=== PATIENT | female | born 1970 | race Caucasian/White ===

== ENCOUNTER 2016-10-27 13:33 | Emergency (ER) | payer OTHER ==
[2016-10-27 13:39] VITALS: BMI 24.1
[2016-10-27] MEDS ORDERED: SODIUM CHLORIDE 0.9% 1000 ML INFUS.BAG IV ONE (14:15)
[2016-10-27] MEDS ORDERED: METOCLOPRAMIDE HCL INJECTION 10 MG/2 ML VIAL IVPUSH ONE (14:16)
[2016-10-27] MEDS ORDERED: ACETAMINOPHEN 1000 MG/100 ML VIAL (NON FORMULARY) IVPB ONE (14:17)
[2016-10-27] MEDS ORDERED: METOCLOPRAMIDE HCL INJECTION 10 MG/2 ML VIAL ONE (14:39)
[2016-10-27] MEDS ORDERED: ACETAMINOPHEN INJECTION 100 ML IVPB ONE (14:39)
--- NOTE | 2016-10-27 14:50 | PDOC ---
History of Present Illness - General Chief Complaint: Headache Stated Complaint: NAUSEA/VOMITING Time Seen by Provider: 10/27/16 13:51 History Source: Patient Exam Limitations: No Limitations - History of Present Illness Initial Comments: 10/27/16 14:39 The patient is a 46F with a PMH of migraines and HTN who presents to the ED with complaints of a headache. The patient states that she had headache that started on Friday suddenly, but has gradually worsened since Friday. Yesterday and today she has vomited 12 times. The headache is L sided, stabbing, and radiates to the back of her head. She does admit to being stressed at work. She denies fever, neck stiffness, onset with exertion, sudden onset, and maximal pain at onset. LMP: on it now Soc: does not smoke, drink, use drugs Past History - Past Medical History Allergies/Adverse Reactions: Allergies Allergy/AdvReac Type Severity Reaction Status Date / Time No Known Drug Allergies Allergy Verified 10/27/16 13:35 Home Medications: Ambulatory Orders Topiramate [Topamax] 50 mg PO BID 12/13/14 Naproxen [Naprosyn -] 500 mg PO PRN PRN 05/26/15 Oxycodone HCl/Acetaminophen [Percocet 5-325 mg Tablet] 1 - 2 tab PO Q6H PRN #20 tab MDD 8 05/30/15 Anemia: Yes Asthma: No Cancer: No Cardiac Disorders: (?UNDETECTED [place]) CVA: No COPD: No CHF: No Dementia: No Diabetes: No GI Disorders: Yes Disorders: No HTN: Yes (border line) Hypercholesterolemia: No Liver Disease: No Seizures: No Thyroid Disease: No Other medical history: migraines - Surgical History Abdominal Surgery: No Appendectomy: No Cardiac Surgery: No Cholecystectomy: Yes Lung Surgery: No Neurologic Surgery: No - Psycho/Social/Smoking Cessation Hx Anxiety: No Suicidal Ideation: No Smoking Status: No Smoking History: Never smoked Have you smoked in the past 12 months: No Number of Cigarettes Smoked Daily: 0 Information on smoking cessation initiated: No Hx Alcohol Use: No Drug/Substance Use Hx: No Substance Use Type: None Hx Substance Use Treatment: No Review of Systems - Review of Systems Able to Perform ROS?: Yes Is the patient limited Arabic proficient: No Constitutional: Yes: Other (cold sweats). No: Chills, Fever, Night Sweats HEENTM: Yes: Throat Pain, Other (photophobia; no neck stiffness). No: Blurred Vision Respiratory: No: Cough, Shortness of Breath Cardiac (ROS): No: Chest Pain, Palpitations ABD/GI: Yes: Nausea, Vomiting : No: Burning, Dysuria, Discharge Neurological: Yes: Weakness. No: Headache, Numbness, Tingling *Physical Exam - Vital Signs Last Vital Signs Temp Pulse Resp BP Pulse Ox 98.3 F 85 18 134/85 100 10/27/16 13:36 10/27/16 13:36 10/27/16 13:36 10/27/16 13:36 10/27/16 13:36 - Physical Exam General Appearance: Yes: Nourished, Appropriately Dressed, Mild Distress HEENT: positive: Normal Voice, Tonsillar Erythema, Hearing Grossly Normal. negative: Tonsillar Exudate Neck: positive: Supple. negative: Lymphadenopathy (R), Lymphadenopathy (L) Respiratory/Chest: positive: Lungs Clear, Normal Breath Sounds. negative: Chest Tender, Respiratory Distress, Rapid RR, Decreased Breath Sounds, Crackles , Rales, Rhonchi, Stridor, Wheezing Cardiovascular: positive: Regular Rhythm, Regular Rate, S1, S2. negative: Diastolic Murmur, Systolic Murmur Gastrointestinal/Abdominal: positive: Flat, Soft. negative: Tender, Protuberent , Distended, Guarding, Rebound Musculoskeletal: negative: CVA Tenderness, CVA Tenderness (R), CVA Tenderness (L ) Extremity: positive: Normal Inspection. negative: Swelling, Calf Tenderness Integumentary: positive: Dry, Warm. 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 negative: Abnormal Cranial NS, EOM Palsy, Facial Droop, Numbness, Sensory Deficit, Finger to Nose, Confused, Disoriented, Depressed Affect Heart Score/ECG Review - ECG Impressions Normal ECG: Yes ED Treatment Course - LABORATORY CBC & Chemistry Diagram: 10/27/16 14:10 10/27/16 14:10 - RADIOLOGY Radiology Studies Ordered: Category Date Time Status HEAD CT WITHOUT CONTRAST [CT] Stat CT Scan 10/27/16 14:23 Ordered Medical Decision Making - Medical Decision Making 10/27/16 14:52 The patient is a 46F with a PMH of migraines and HTN who presents to the ED with complaints of worsening headache since Friday. The patient states that this headache is abnormal compared to her normal migraines. I am concerned for a complex migraines and a subarachnoid. Labs pending and CT head is ordered. Will reassess when labs return. 10/27/16 16:[address] May, neurosurg, called for recs. He stated that this is not concerning and the patient should follow up with her neurologist for possible MRI w/ and w/o contrast. Patient informed and agrees for follow up. *DC/Admit/Observation/Transfer Diagnosis at time of Disposition: Migraine Qualifiers: Migraine type: unspecified Status migrainosus presence: without status migrainosus Intractability: not intractable Qualified Code(s): G43.909 - Migraine, unspecified, not intractable, without status migrainosus - Discharge Dispostion Disposition: HOME Condition at time of disposition: Improved Admit: No - Referrals Referrals: Davion Segura [Primary Care Provider] - Felipe Petersen DO [Staff Physician] - - Patient Instructions Printed Discharge Instructions: DI for Migraine, Migraine -- Adult Additional Instructions: Please return to the ER if symptoms persist, worsen, or if new symptoms arise. Please follow up with your neurologist for your CT scan findings within 2-3 days and for control of your migraines. Please return to the ER if your headaches worsen or if you have nausea and vomiting that are uncontrollable.
[2016-10-27 14:58] LABS: ALBUMIN 4.4 g/dl (3.4-5.0); ANION GAP 5 (8-16); BILIRUBIN,TOTAL 0.5 mg/dL (0.2-1.0); CALCIUM 8.4 mg/dL (8.5-10.1); CO2 25 mmol/L (21-32); CREATININE 0.6 mg/dL (0.55-1.02); GLUCOSE,RANDOM 114 mg/dL (74-106); SGPT/ALT 21 U/L (12-78); TOT PROT 7.9 g/dl (6.4-8.2)
[2016-10-27 15:00] LABS: ALK PHOS 114 U/L (45-117); TROPONIN I < 0.02 ng/ml (0.00-0.05)
[2016-10-27 15:02] LABS: MAGNESIUM 2.3 mg/dL (1.8-2.4); SGOT/AST 32 U/L (15-37)
[2016-10-27 15:03] LABS: CPK 175 IU/L (26-192)
[2016-10-27 15:17] LABS: BASOPHIL 0.6 % (0-2.0); EOSINOPHIL 2.3 % (0-4.5); MCH 22.7 pg (25.7-33.7); MCHC 32.3 g/dl (32.0-36.0); MEAN CELL VOLUME 70.4 fl (80-96); MEAN PLT VOLUME 9.2 fl (7.5-11.1); NEUTROPHILS 75.2 % (42.8-82.8); PLATELET COUNT 248 K/MM3 (134-434)
[2016-10-27] MEDS ORDERED: ONDANSETRON 4 MG/2 ML VIAL IVPUSH ONE (15:26)
[2016-10-27] MEDS ORDERED: ONDANSETRON 4 MG/2 ML VIAL ONE (15:31)
--- NOTE | 2016-10-27 16:05 | PDOC ---
Attending Attestation - Resident Resident Name: Henry Harding - ED Attending Attestation I have performed the following: I have examined & evaluated the patient, The case was reviewed & discussed with the resident, I agree w/resident's findings & plan, Exceptions are as noted - HPI HPI: 10/27/16 16:36 46 yo F with h/o migraines and HTN presents to ER with headache x 3 days. Pt states that her migraines typically last 2 days and are associated with a few episodes of nausea and vomiting. However, this episode has gone on for 3 days, and pt reports more vomiting than usual. She denies fevers, denies neck stiffness. Denies thunderclap or worst headache of life. She states that this headache is similar in character and severity to her typical migraines but has persisted longer than usual. Pt takes topamax daily for migraine prophylaxis and naproxen PRN. - Physicial Exam PE: 10/27/16 16:37 "GENERAL: Awake, alert, and fully oriented, in no acute distress HEAD: No signs of trauma EYES: PERRLA, EOMI, sclera anicteric, conjunctiva clear ENT: Auricles normal inspection, hearing grossly normal, nares patent, oropharynx clear without exudates. Moist mucosa NECK: Nontender, no stepoffs, Normal ROM, supple, no lymphadenopathy, JVD, or masses LUNGS: Breath sounds equal, clear to auscultation bilaterally. No wheezes, and no crackles HEART: Regular rate and rhythm, normal S1 and S2, no murmurs, rubs or gallops ABDOMEN: Soft, nontender, normoactive bowel sounds. No guarding, no rebound. No masses EXTREMITIES: Normal range of motion, no edema. No clubbing or cyanosis. No cords, erythema, or tenderness NEUROLOGICAL: Cranial nerves II through XII intact. 5/5 strength and sensation in all extremities, Normal speech, normal gait SKIN: Warm, Dry, normal turgor, no rashes or lesions noted. " - Medical Decision Making 10/27/16 16:37 46 yo F with likely migraine headache. No red flags for SAH or meningitis. Pt describes pain as similar in character and severity to her usual migraines, but it has persisted longer than normal. - Labs - IVF, tylenol, reglan 10/27/16 16:56 Pt reassessed - now feels significantly better. MATIAS resolved and pt tolerating PO without nausea or vomiting. CTH notable for frontal meningioma. Spoke with Dr. Jaime May, neurosurgeon information assurance officer, who believes this is purely an incidental finding and not likely the cause of her headaches. Pt informed of results and instructed to follow up with neurology for MRI.
[2016-10-27 17:33] VITALS: BP 132/75; PULSE 71; TEMP 97.9
== END 2016-10-27 17:54 | disposition home or self-care (01) ==
LOC: JER 13:33
DX: G43.909 Migraine, unspecified, not intractable, without status migrainosus (principal); I10 Essential (primary) hypertension
CPT/HCPCS: 36415; 70450-TC; 80053; 82553; 83735; 84484; 84703; 85025; 99282-25

== ENCOUNTER 2017-03-29 16:59 | Emergency (ER) | payer OTHER ==
[2017-03-29] MEDS ORDERED: METOCLOPRAMIDE HCL INJECTION 10 MG/2 ML VIAL IVPUSH ONE (17:41)
[2017-03-29] MEDS ORDERED: SODIUM CHLORIDE 1,000 ML IV STA (17:41)
--- NOTE | 2017-03-29 17:44 | PDOC ---
Attending Attestation - Resident Resident Name: Jaime Waldrop - ED Attending Attestation I have performed the following: I have examined & evaluated the patient, The case was reviewed & discussed with the resident, I agree w/resident's findings & plan, Exceptions are as noted - Physicial Exam PE: 03/29/17 17:44 GENERAL: The patient is in no acute distress. HEAD: Normal with no signs of trauma. EYES: PERRLA, EOMI, sclera anicteric, conjunctiva clear. ENT: Ears normal, nares patent, oropharynx clear without exudates. Moist mucous membranes. NECK: Normal range of motion, supple without lymphadenopathy, JVD, or masses. LUNGS: Breath sounds equal, clear to auscultation bilaterally. No wheezes, and no crackles. HEART:Regular rate and rhythm, normal S1 and S2 without murmur, rub or gallop. ABDOMEN: Soft, nontender, normoactive bowel sounds. No guarding, no rebound. No masses palpable. EXTREMITIES: Normal range of motion, no edema. No clubbing or cyanosis. No erythema, or tenderness. NEUROLOGICAL: Cranial nerves II through XII grossly intact. Normal speech. No focal neurological deficits. MUSCULOSKELETAL: Back non-tender to palpation, no CVA tenderness SKIN: Warm, Dry, normal turgor, no rashes or lesions noted.
--- NOTE | 2017-03-29 17:58 | PDOC ---
History of Present Illness - General Chief Complaint: Chest Pain Stated Complaint: CHEST PAIN Time Seen by Provider: 03/29/17 17:30 History Source: Patient Exam Limitations: No Limitations - History of Present Illness Initial Comments: 03/29/17 17:57 Patient is a 46F with history of frontal meningioma, HTN and migraine headaches here today complaining of headache for 3 days. She states the headache started mildly and gradually worsened. She states that this headache is different from her typical headache because she does not have photophobia and the side of the headache is changing back and forth. Patient also is complaining of palpitations and is equivocal if she is having true chest pain. Denies cardiovascular history. Denies shortness of breath. Patient is also concerned about her blood pressure, which she measured at home to 160/100. Past History - Past Medical History Allergies/Adverse Reactions: Allergies Allergy/AdvReac Type Severity Reaction Status Date / Time No Known Drug Allergies Allergy Verified 03/29/17 18:17 Home Medications: Ambulatory Orders Topiramate [Topamax] 50 mg PO BID 12/13/14 Anemia: Yes Asthma: No Cancer: No Cardiac Disorders: (?UNDETECTED [place]) CVA: No COPD: No CHF: No Dementia: No Diabetes: No GI Disorders: Yes Disorders: No HTN: Yes (border line) Hypercholesterolemia: No Liver Disease: No Seizures: No Thyroid Disease: No - Surgical History Abdominal Surgery: No Appendectomy: No Cardiac Surgery: No Cholecystectomy: Yes Lung Surgery: No Neurologic Surgery: No - Suicide/Smoking/Psychosocial Hx Smoking Status: No Smoking History: Never smoked Have you smoked in the past 12 months: No Number of Cigarettes Smoked Daily: 0 Hx Alcohol Use: No Drug/Substance Use Hx: No Substance Use Type: None Hx Substance Use Treatment: No Review of Systems - Review of Systems Comments:: 03/29/17 18:00 GENERAL/CONSTITUTIONAL: No fever or chills. No weakness. HEAD, EYES, EARS, NOSE AND THROAT: No change in vision. No sore throat. CARDIOVASCULAR: Positive for chest pain. Negative for shortness of breath RESPIRATORY: No cough, wheezing, or hemoptysis. GASTROINTESTINAL: No nausea, vomiting, diarrhea or constipation. GENITOURINARY: No dysuria, frequency, or change in urination. MUSCULOSKELETAL: No joint or muscle swelling or pain. No neck or back pain. SKIN: No rash NEUROLOGIC: Positive for headache. Negative for vertigo, loss of consciousness, or change in strength/sensation. HEMATOLOGIC/LYMPHATIC: No anemia, easy bleeding, or history of blood clots. ALLERGIC/IMMUNOLOGIC: No hives or skin allergy. *Physical Exam - Physical Exam Comments: 03/29/17 18:00 GENERAL: Awake, alert, and fully oriented, in no acute distress HEAD: No signs of trauma, normocephalic, atraumatic EYES: PERRLA, EOMI, sclera anicteric, conjunctiva clear ENT: Auricles normal inspection, hearing grossly normal, nares patent, oropharynx clear without exudates. Moist mucosa NECK: Normal ROM, supple, no lymphadenopathy, JVD, or masses LUNGS: No distress, speaks full sentences, clear to auscultation bilaterally HEART: Regular rate and rhythm, normal S1 and S2, no murmurs, rubs or gallops, peripheral pulses normal and equal bilaterally. EXTREMITIES: Normal inspection, Normal range of motion, no edema. No clubbing or cyanosis. NEUROLOGICAL: Cranial nerves II through XII grossly intact. Normal speech, normal gait, no focal sensorimotor deficits SKIN: Warm, Dry, normal turgor, no rashes or lesions noted. Heart Score/ECG Review - History History: Slightly suspicious - Electrocardiogram EKG: Normal - Age Age: 45-65 - Risk Factors Risk Factors Heart Score: Yes Positive family hx of cardiac disease Based on the list above the patient has:: 1-2 risk factors - Troponin Troponin: </= normal limit - Score Heart Score - Total: 2 ED Treatment Course - LABORATORY CBC & Chemistry Diagram: 03/29/17 17:47 03/29/17 17:47 - RADIOLOGY Radiology Studies Ordered: Category Date Time Status HEAD CT WITHOUT CONTRAST [CT] Stat CT Scan 03/29/17 17:42 Ordered CHEST PA & LAT [RAD] Stat Radiology 03/29/17 17:42 Ordered Medical Decision Making - Medical Decision Making 03/29/17 18:01 Patient is a 46F with history of meningioma, HTN, migraines here today with headache and atypical chest pain. Vital signs stable and normal. Will evaluate with heart workup, upreg, head ct given history of mass and change in headache. Will treat with fluids, reglan. 03/29/17 20:40 EKG shows normal sinus rhythm, normal rate. No ST elevation/depressions. No significant t wave abnormalities. Normal QRS/QTc/AZ intervals. Q waves in V3/V4. 03/29/17 20:42 Laboratory Tests 03/29/17 03/29/17 03/29/17 17:47 17:47 17:47 WBC 5.6 Hgb 10.7 Hct 34.9 Plt Count 233 INR 1.08 BUN Creatinine Troponin I Urine HCG, Qual Negative 03/29/17 17:47 WBC Hgb Hct Plt Count INR BUN 12 Creatinine 0.8 Troponin I < 0.02 Urine HCG, Qual CBC normal. INR negative, upreg negative. Kidney function normal. Trop negative. CT scan shows no acute changes, stable meningioma. Patient reports feeling better. Will discharge home with return precautions. *DC/Admit/Observation/Transfer Diagnosis at time of Disposition: Headache - Discharge Dispostion Disposition: HOME Condition at time of disposition: Good Admit: No - Referrals Referrals: Davion Segura [Primary Care Provider] - - Patient Instructions Printed Discharge Instructions: DI for Atypical Chest Pain, DI for Headache Additional Instructions: Please return if you have any new, worsening or concerning symptoms. Please follow up with your primary care physician this week. - Post Discharge Activity
[2017-03-29] MEDS ORDERED: METOCLOPRAMIDE HCL INJECTION 10 MG/2 ML VIAL ONE (18:02)
[2017-03-29 18:17] VITALS: BP 135/92; PULSE 85; TEMP 97; BMI 24.1
[2017-03-29 18:21] LABS: EOS % 3.6 % (0-4.5); HEMATOCRIT 34.9 % (32.4-45.2); HEMOGLOBIN 10.7 GM/dL (10.7-15.3); LYMPH % 21.2 % (8-40); MCH 21.8 pg (25.7-33.7); MCHC 30.7 g/dl (32.0-36.0); MEAN CELL VOLUME 71.2 fl (80-96); MEAN PLT VOLUME 9.6 fl (7.5-11.1); MONO % 7.4 % (3.8-10.2); NEUT % 66.8 % (42.8-82.8); PLATELET COUNT 233 K/MM3 (134-434); RDW 16.6 % (11.6-15.6); WHITE BLOOD COUNT 5.6 K/mm3 (4.0-10.0)
[2017-03-29 18:23] LABS: ADD RBC MORPHOLOGY YES
[2017-03-29 18:34] LABS: INR 1.08 (0.82-1.09); PROTHROMBIN TIME (PATIENT) 12.2 SEC (9.98-11.88)
[2017-03-29 18:44] LABS: ALBUMIN 4.2 g/dl (3.4-5.0); ANION GAP 6 (8-16); BILIRUBIN,TOTAL 0.3 mg/dL (0.2-1.0); BLOOD UREA NITROGEN 12 mg/dL (7-18); CALCIUM 8.3 mg/dL (8.5-10.1); CHLORIDE 113 mmol/L (98-107); CO2 25 mmol/L (21-32); CREATININE 0.8 mg/dL (0.55-1.02); GLUCOSE,RANDOM 92 mg/dL (74-106); MAGNESIUM 2.3 mg/dL (1.8-2.4); POTASSIUM 4.4 mmol/L (3.5-5.1); SGOT/AST 13 U/L (15-37); SGPT/ALT 14 U/L (12-78); SODIUM 144 mmol/L (136-145); TOT PROT 7.1 g/dl (6.4-8.2)
[2017-03-29 18:46] LABS: ALK PHOS 94 U/L (45-117)
[2017-03-29 19:06] LABS: ANISOCYTOSIS 1+; OVALOCYTE 1+; PLATELET ESTIMATE ADEQUATE; TEAR DROP CELLS 1+
--- NOTE | 2017-03-30 11:09 | EKG ---
Test Reason : Blood Pressure : / mmHG Vent. Rate : 081 BPM Atrial Rate : 081 BPM P-R Int : 178 ms QRS Dur : 090 ms QT Int : 400 ms P-R-T Axes : 053 029 063 degrees QTc Int : 464 ms POOR DATA QUALITY, INTERPRETATION MAY BE ADVERSELY AFFECTED NORMAL SINUS RHYTHM SEPTAL INFARCT (CITED ON OR BEFORE 13-DEC-2014) ABNORMAL ECG WHEN COMPARED WITH ECG OF 26-JAN-2015 12:34, NO SIGNIFICANT CHANGE WAS FOUND Confirmed by ZAC OJEDA MD ([id number]) on 03/30/2017 11:09:11 AM Referred By: Confirmed By:ZAC OJEDA MD
== END 2017-03-29 20:59 | disposition home or self-care (01) ==
LOC: JER 16:59
PROC: 3E033GC Introduction of Other Therapeutic Substance into Peripheral Vein, Percutaneous Approach (ICD-10-PCS; principal; 2017-03-29)
DX: R51 Headache (principal); D32.0 Benign neoplasm of cerebral meninges; I10 Essential (primary) hypertension; G43.909 Migraine, unspecified, not intractable, without status migrainosus
CPT/HCPCS: 36415; 70450-TC; 71046-TC-FY; 80053; 82550; 83735; 84484; 84703; 85025; 85610; 93005; 93010; 99284-25

== ENCOUNTER 2017-10-20 17:45 | Emergency (ER) | payer OTHER ==
[2017-10-20 18:32] VITALS: TEMP 99; BMI 25.0
--- NOTE | 2017-10-20 18:32 | PDOC ---
Rapid Medical Evaluation Chief Complaint: Vomiting/Diarrhea Time Seen by Provider: 10/20/17 18:24 Medical Evaluation: Allergies Allergy/AdvReac Type Severity Reaction Status Date / Time No Known Drug Allergies Allergy Verified 03/29/17 18:17 10/20/17 18:29 I have performed a brief in-person evaluation of this patient. The patient presents with a chief complaint of: Onset of Nausea/ vomiting / Diarhea - greater than 10 today - watery and foul smell, chills and fevers Pertinent physical exam findings: paLE , WEAK, mild diffuse cramping I have ordered the following: IV, NS, CbC, CMP, Lipase, UA UCG, Stool- gRAM STAIN/ oVA/PARASITE, cDIFF, culture The patient will proceed to the ED for further evaluation. 10/20/17 18:37 Discharge Disposition - Referrals Referrals: Davion Segura [Primary Care Provider] - - Patient Instructions - Post Discharge Activity
[2017-10-20] MEDS ORDERED: SODIUM CHLORIDE 1,000 ML IV ONE (18:47)
[2017-10-20] MEDS ORDERED: SODIUM CHLORIDE 1,000 ML IV STA (19:29)
[2017-10-20] MEDS ORDERED: ONDANSETRON 4 MG/2 ML VIAL IVPUSH ONE (19:30)
[2017-10-20] MEDS ORDERED: ACETAMINOPHEN 1000 MG/100 ML VIAL (NON FORMULARY) IVPB ONE (19:30)
--- NOTE | 2017-10-20 19:32 | PDOC ---
Attending Attestation - HPI HPI: 10/20/17 19:32 47F Pmhx of migraines and cholesystectomy 1 day of history of multiple episodes of diarrhea and mild abdominal pain w/ associated nausea and decrease in PO tolerance.+endorses subjective fever. Pt states she recently traveled to [place]. Denies sick contact or constipation, cp, sob, vomiting, and any urinary issues. <Ryder Vickers - Last Filed: 10/20/17 20:38> - Resident Resident Name: Jaime Waldrop - ED Attending Attestation I have performed the following: I have examined & evaluated the patient, The case was reviewed & discussed with the resident, I agree w/resident's findings & plan, Exceptions are as noted - Physicial Exam PE: 10/20/17 19:31 GENERAL: The patient is in no acute distress. ENT: Dry mucous membranes. NECK: Normal range of motion LUNGS: Breath sounds equal, clear to auscultation bilaterally. No wheezes, and no crackles. HEART:Regular rate and rhythm, normal S1 and S2 without murmur, rub or gallop. ABDOMEN: Soft, diffusely tender to palpation, no involuntary guarding or rebound EXTREMITIES: Normal range of motion, no edema. NEUROLOGICAL: Cranial nerves II through XII grossly intact. Normal speech. No focal neurological deficits. 10/20/17 20:19 - Medical Decision Making DD: Appendicitis, colitis, enteritis, gastroenteritis, diverticulitis No h/o inflammatory bowel disease 10/20/17 20:19 Laboratory Tests 10/20/17 19:24 WBC 13.0 H Hgb 10.7 Hct 34.0 Plt Count 230 Neutrophils % 91.[address] 10/20/17 21:51 Laboratory Tests 10/20/17 19:24 Sodium 143 Potassium 3.7 Chloride 114 H Carbon Dioxide 20 L BUN 13 Creatinine 1.0 Random Glucose [address] pending 10/22/17 01:06 CT demonstrated acute colitis Results reviewed with patient She would prefer to go home Pain has improved Will discharge to home on antibiotics Pt will follow up with PMD and with GI Return to the ER for any fevers, worsening pain, diarrhea which is bloody or mucoid <Chantal Pablo - Last Filed: 10/22/17 01:12> Attestations - Attestations Documentation prepared by Ryder Vickers, acting as expert medical writer for Chantal Pablo MD. <Ryder Vickers - Last Filed: 10/20/17 20:38>
[2017-10-20 19:51] LABS: BASO % 0.4 % (0-2.0); HEMOGLOBIN 10.7 GM/dL (10.7-15.3); LYMPH % 3.4 % (8-40); MCH 22.3 pg (25.7-33.7); MCHC 31.6 g/dl (32.0-36.0); MEAN CELL VOLUME 70.7 fl (80-96); MONO % 4.6 % (3.8-10.2); NEUT % 91.6 % (42.8-82.8); PLATELET COUNT 230 K/MM3 (134-434); RDW 18.6 % (11.6-15.6)
--- NOTE | 2017-10-20 19:57 | PDOC ---
History of Present Illness - General Chief Complaint: Vomiting/Diarrhea Stated Complaint: Vomiting/Diarrhea Time Seen by Provider: 10/20/17 18:24 History Source: Patient Exam Limitations: No Limitations - History of Present Illness Initial Comments: 10/20/17 19:53 Patient is a 47F with history of migraines here today complaining of diarrhea that started last night. Patient endorses associated nausea, vomiting and abdominal pain. Describes her diarrhea as watery. Denies blood in stool and vomit. Denies recent antibiotic use. Denies known sick contacts and new foods. Patient recently returned from [place] this week. Denies pain with urination. Endorses subjective fevers, chills. Denies chest pain, shortness of breath. Past History - Past Medical History Allergies/Adverse Reactions: Allergies Allergy/AdvReac Type Severity Reaction Status Date / Time No Known Drug Allergies Allergy Verified 10/20/17 18:28 Home Medications: Ambulatory Orders Topiramate [Topamax] 50 mg PO BID 12/13/14 Ciprofloxacin [Cipro (Restricted To Id)] 500 mg PO Q12H #20 tablet 10/20/17 metroNIDAZOLE [Flagyl -] 500 mg PO TID #30 tablet 10/20/17 Anemia: Yes Asthma: No Cancer: No Cardiac Disorders: Yes (?UNDETECTED LA) CVA: No COPD: No CHF: No Dementia: No Diabetes: No GI Disorders: Yes Disorders: No HTN: Yes (border line) Hypercholesterolemia: No Liver Disease: No Seizures: No Thyroid Disease: No - Surgical History Abdominal Surgery: No Appendectomy: No Cardiac Surgery: No Cholecystectomy: Yes Lung Surgery: No Neurologic Surgery: No - Suicide/Smoking/Psychosocial Hx Smoking Status: No Smoking History: Never smoked Have you smoked in the past 12 months: No Number of Cigarettes Smoked Daily: 0 Hx Alcohol Use: No Drug/Substance Use Hx: No Substance Use Type: None Hx Substance Use Treatment: No Review of Systems - Review of Systems Comments:: 10/20/17 20:26 GENERAL/CONSTITUTIONAL: +fever +chills. No weakness. HEAD, EYES, EARS, NOSE AND THROAT: No change in vision. No sore throat. CARDIOVASCULAR: No chest pain or shortness of breath RESPIRATORY: No cough, wheezing, or hemoptysis. GASTROINTESTINAL: +nausea, vomiting, diarrhea. GENITOURINARY: No dysuria, frequency, or change in urination. MUSCULOSKELETAL: No joint or muscle swelling or pain. No neck or back pain. SKIN: No rash NEUROLOGIC: No headache, vertigo, loss of consciousness, or change in strength/ sensation. ENDOCRINE: No increased thirst. No abnormal weight change HEMATOLOGIC/LYMPHATIC: No anemia, easy bleeding, or history of blood clots. ALLERGIC/IMMUNOLOGIC: No hives or skin allergy. *Physical Exam - Vital Signs Last Vital Signs Temp Pulse Resp BP Pulse Ox 99 F 116 H 18 135/80 99 10/20/17 18:28 10/20/17 18:28 10/20/17 18:28 10/20/17 18:28 10/20/17 18:28 - Physical Exam Comments: 10/20/17 20:27 GENERAL: Awake, alert, and fully oriented, in no acute distress HEAD: No signs of trauma, normocephalic, atraumatic EYES: PERRLA, EOMI, sclera anicteric, conjunctiva clear ENT: Auricles normal inspection, hearing grossly normal, nares patent, oropharynx clear without exudates. Moist mucosa NECK: Normal ROM, supple, no lymphadenopathy, JVD, or masses LUNGS: No distress, speaks full sentences, clear to auscultation bilaterally HEART: Tachycardic, normal S1 and S2, no murmurs, rubs or gallops, peripheral pulses normal and equal bilaterally. ABDOMEN: Soft, diffuse mild tenderness, normoactive bowel sounds. No guarding, no rebound. No masses EXTREMITIES: Normal inspection, Normal range of motion, no edema. No clubbing or cyanosis. NEUROLOGICAL: Cranial nerves II through XII grossly intact. Normal speech, no focal sensorimotor deficits SKIN: Warm, Dry, normal turgor, no rashes or lesions noted. ED Treatment Course - LABORATORY CBC & Chemistry Diagram: 10/20/17 19:24 10/20/17 19:24 - RADIOLOGY Radiology Studies Ordered: Category Date Time Status ABDOMEN & PELVIS CT WITH CONTR [CT] Stat CT Scan 10/20/17 19:44 Ordered - Medications Given in the ED: ED Medications Discontinued Medications Generic Name Dose Route Start Last Admin Trade Name Freq PRN Reason Stop Dose Admin Sodium Chloride 1,000 mls @ 1,000 mls/hr 10/20/17 18:47 10/20/17 19:48 Normal Saline - IV 10/20/17 19:46 1,000 mls/hr .Q1H ONE Administration Medical Decision Making - Medical Decision Making 10/20/17 20:27 Patient is a 47F here today with vomiting, diarrhea, abd pain. Vital signs notable for tachycardia. PE shows no focal tenderness, but does show tachycardia and diffuse tenderness. Tactile fever on exam. Suspect colitis related to travel, c diff less likely given no abx exposure and recent travel. Will evaluate with abdominal labs and CT. Will treat with fluids, zofran, tylenol. 10/20/17 23:57 CBC shows leukocytosis. CMP reassuring. CT scan shows steiner-colitis. Discussed admission with patient. Patient reports feeling better, tolerating PO. Patient has PCP follow up. Patient wishes to go home to take care of her family. Given return precautions, instructions to follow up with PCP. Expressed importance of being able to take medications and returning if unable to. Patient expressed understanding discharged. HR 92. *DC/Admit/Observation/Transfer Diagnosis at time of Disposition: Colitis - Discharge Dispostion Disposition: HOME Condition at time of disposition: Good Decision to Admit order: No - Prescriptions Prescriptions: Ciprofloxacin [Cipro (Restricted To Id)] 500 mg PO Q12H #20 tablet metroNIDAZOLE [Flagyl -] 500 mg PO TID #30 tablet - Referrals Referrals: Davion Segura [Primary Care Provider] - - Patient Instructions Printed Discharge Instructions: DI for Colitis Additional Instructions: Please return if you have any new, worsening or concerning symptoms. Please return to the ED immediately if you are unable to take your medicine. Please follow up with your primary care doctor this week. - Post Discharge Activity
[2017-10-20] MEDS ORDERED: ONDANSETRON 4 MG/2 ML VIAL ONE (20:00)
[2017-10-20] MEDS ORDERED: ACETAMINOPHEN INJECTION 100 ML IVPB ONE (20:00)
[2017-10-20 20:31] LABS: ALBUMIN 3.4 g/dl (3.4-5.0); ANION GAP 9 MMOL/L (8-16); BILIRUBIN,TOTAL 0.4 mg/dL (0.2-1.0); BLOOD UREA NITROGEN 13 mg/dL (7-18); CHLORIDE 114 mmol/L (98-107); CO2 20 mmol/L (21-32); GLUCOSE,RANDOM 124 mg/dL (74-106); LIPASE 98 U/L (73-393); POTASSIUM 3.7 mmol/L (3.5-5.1); SGOT/AST 33 U/L (15-37); SGPT/ALT 35 U/L (12-78); SODIUM 143 mmol/L (136-145); TOT PROT 6.8 g/dl (6.4-8.2)
[2017-10-20 20:32] LABS: ALK PHOS 108 U/L (45-117)
[2017-10-20 21:05] LABS: PLATELET ESTIMATE ADEQUATE
[2017-10-20] MEDS ORDERED: metroNIDAZOLE 250 MG TABLET PO ONE (23:52)
[2017-10-20] MEDS ORDERED: CIPROFLOXACIN 500 MG TABLET (RESTRICTED TO ID) PO ONE (23:52)
[2017-10-20 23:57] VITALS: BP 124/81; PULSE 86
[2017-10-20] MEDS ORDERED: metroNIDAZOLE 250 MG TABLET ONE (23:58)
== END 2017-10-21 00:16 | disposition home or self-care (01) ==
LOC: JER 17:45
PROC: 3E0337Z Introduction of Electrolytic and Water Balance Substance into Peripheral Vein, Percutaneous Approach (ICD-10-PCS; principal; 2017-10-20)
PROC: 3E033GC Introduction of Other Therapeutic Substance into Peripheral Vein, Percutaneous Approach (ICD-10-PCS; 2017-10-20)
PROC: 3E033NZ Introduction of Analgesics, Hypnotics, Sedatives into Peripheral Vein, Percutaneous Approach (ICD-10-PCS; 2017-10-20)
DX: K52.9 Noninfective gastroenteritis and colitis, unspecified (principal)
CPT/HCPCS: 36415; 74177-TC; 80053; 83690; 85025; 87045; 87046; 87177; 87186; 87205; 87209; 87324; 87449; 96361; 96374; 96375; 99282-25; J0131; J7030

== ENCOUNTER 2018-11-12 07:15 | Day surgery (SDC) | payer OTHER ==
[2018-11-12] MEDS ORDERED: FERRIC CARBOXYMALTOSE 750 MG in SODIUM CHLORIDE 250 ML IVPB ONE (08:00)
[2018-11-12 08:05] VITALS: TEMP 98.4
[2018-11-12 11:16] VITALS: BP 131/89; PULSE 89
== END 2018-11-12 10:10 | disposition home or self-care (01) ==
LOC: JINFUSION 07:15
PROVIDERS: ATTEND Family Medicine
PROC: 3E033GC Introduction of Other Therapeutic Substance into Peripheral Vein, Percutaneous Approach (ICD-10-PCS; principal; 2018-11-12)
DX: D64.9 Anemia, unspecified (principal)
CPT/HCPCS: 84703; 96365; J1439

== ENCOUNTER 2018-11-19 07:12 | Day surgery (SDC) | payer OTHER ==
[2018-11-19] MEDS ORDERED: FERRIC CARBOXYMALTOSE 750 MG in SODIUM CHLORIDE 250 ML IVPB ONE (07:45)
[2018-11-19 09:44] VITALS: BP 139/90; PULSE 86; TEMP 98.1
== END 2018-11-19 10:05 | disposition home or self-care (01) ==
LOC: JINFUSION 07:12
PROVIDERS: ATTEND Family Medicine
PROC: 3E033GC Introduction of Other Therapeutic Substance into Peripheral Vein, Percutaneous Approach (ICD-10-PCS; principal; 2018-11-19)
DX: D64.9 Anemia, unspecified (principal)
CPT/HCPCS: 84703; 96365; J1439

== ENCOUNTER 2020-09-15 11:07 | Day surgery (SDC) | payer OTHER ==
[2020-09-15] MEDS ORDERED: FERRIC CARBOXYMALTOSE 750 MG in SODIUM CHLORIDE 250 ML IVPB ONE (12:00)
[2020-09-15 13:37] VITALS: BP 142/88; PULSE 89; TEMP 99
== END 2020-09-15 13:38 | disposition home or self-care (01) ==
LOC: FINFUSION 11:07 → FM/S 11:12 → FINFUSION 13:38
PROVIDERS: ATTEND Nurse Practitioner Adult Health
PROC: 3E033GC Introduction of Other Therapeutic Substance into Peripheral Vein, Percutaneous Approach (ICD-10-PCS; principal; 2020-09-15)
DX: D50.9 Iron deficiency anemia, unspecified (principal)
CPT/HCPCS: 96365; J1439

== ENCOUNTER 2020-09-22 11:37 | Day surgery (SDC) | payer OTHER ==
[2020-09-22 12:29] VITALS: TEMP 98.2
[2020-09-22] MEDS ORDERED: FERRIC CARBOXYMALTOSE 750 MG in SODIUM CHLORIDE 250 ML IVPB ONE (12:30)
[2020-09-22 13:34] VITALS: BP 150/87; PULSE 85
== END 2020-09-22 13:57 | disposition home or self-care (01) ==
LOC: FINFUSION 11:37 → FM/S 11:40 → FINFUSION 13:57
PROVIDERS: ATTEND Nurse Practitioner Adult Health
PROC: 3E033GC Introduction of Other Therapeutic Substance into Peripheral Vein, Percutaneous Approach (ICD-10-PCS; principal; 2020-09-22)
DX: D50.9 Iron deficiency anemia, unspecified (principal)
CPT/HCPCS: 96365; J1439

== ENCOUNTER 2021-07-03 00:17 | Emergency (ER) | payer OTHER ==
[2021-07-03 00:42] VITALS: TEMP 96.6; BMI 25.0
[2021-07-03] MEDS ORDERED: FAMOTIDINE 20 MG/50 ML IVPB 20 MG/50 ML MG IVPB ONE ×2 (00:44→01:38)
[2021-07-03] MEDS ORDERED: SODIUM CHLORIDE 0.9% 500 ML INFUS.BAG IV ONE (00:44)
[2021-07-03] MEDS ORDERED: ONDANSETRON 4 MG/2 ML VIAL IVPUSH ONE (00:46)
[2021-07-03] MEDS ORDERED: ONDANSETRON 4 MG/2 ML VIAL ONE (01:38)
[2021-07-03] MEDS ORDERED: METOCLOPRAMIDE HCL INJECTION 10 MG/2 ML VIAL IVPUSH ONE (01:40)
[2021-07-03] MEDS ORDERED: METOCLOPRAMIDE HCL INJECTION 10 MG/2 ML VIAL ONE (01:41)
[2021-07-03] MEDS ORDERED: ACETAMINOPHEN 1000 MG/100 ML BAG IVPB ONE (01:59)
[2021-07-03 02:10] LABS: BASO % 0.4 % (0-2.0); EOS % 2.1 % (0-4.5); HEMATOCRIT 43.5 % (32.4-45.2); HEMOGLOBIN 15.1 GM/dL (10.7-15.3); MCH 30.1 pg (25.7-33.7); MCHC 34.6 g/dl (32.0-36.0); MEAN CELL VOLUME 86.9 fl (80-96); MEAN PLT VOLUME 8.3 fl (7.5-11.1); MONO % 6.5 % (3.8-10.2); PLATELET COUNT 201 10^3/uL (134-434); RBC 5.01 M/mm3 (3.60-5.2); RDW 13.7 % (11.6-15.6); WHITE BLOOD COUNT 6.1 K/mm3 (4.0-10.0)
[2021-07-03 02:31] LABS: BLOOD UREA NITROGEN 12.9 mg/dL (7-18)
[2021-07-03 02:33] LABS: CREATININE 0.7 mg/dL (0.55-1.3)
[2021-07-03 02:35] LABS: BILIRUBIN,TOTAL 0.7 mg/dL (0.2-1); TOT PROT 7.2 g/dl (6.4-8.2)
[2021-07-03 04:01] VITALS: BP 148/58; PULSE 90
== END 2021-07-03 04:02 | disposition home or self-care (01) ==
LOC: JER 00:17
PROC: 3E033GC Introduction of Other Therapeutic Substance into Peripheral Vein, Percutaneous Approach (ICD-10-PCS; principal; 2021-07-03)
PROC: 3E033GC Introduction of Other Therapeutic Substance into Peripheral Vein, Percutaneous Approach (ICD-10-PCS; 2021-07-03)
DX: U07.1 COVID-19 (principal)
CPT/HCPCS: 36415; 80053; 83690; 85025; 99284-25

== ENCOUNTER 2022-06-16 20:27 | Emergency (ER) | payer OTHER ==
[2022-06-16 20:34] VITALS: BP 139/97; PULSE 101; RESP 20; TEMP 99.2; BMI 25.2
[2022-06-16] MEDS ORDERED: PENICILLIN G BENZATHINE 1,200,000 UNIT/2 ML PFS IM ONE ×2 (22:24→22:29)
== END 2022-06-16 23:20 | disposition home or self-care (01) ==
LOC: JER 20:27 → JERFT 20:27
DX: J02.0 Streptococcal pharyngitis (principal); R05.1 Acute cough; M79.10 Myalgia, unspecified site
CPT/HCPCS: 71046-TC-FY; 87651; 99284-25

== ENCOUNTER 2022-07-17 16:35 | Emergency (ER) | payer OTHER ==
[2022-07-17 16:54] VITALS: BP 159/98; PULSE 72; RESP 18; BMI 25.0
[2022-07-17] MEDS ORDERED: IBUPROFEN 600 MG TABLET (FP) PO ONE ×2 (17:34→17:40)
== END 2022-07-17 18:50 | disposition home or self-care (01) ==
LOC: JERFT 16:35
DX: S63.501A Unspecified sprain of right wrist, initial encounter (principal); M25.531 Pain in right wrist; W22.8XXA Striking against or struck by other objects, initial encounter
CPT/HCPCS: 73110-TC-RT-FY; 99283-25

== ENCOUNTER 2022-09-14 20:42 | Emergency (ER) | payer OTHER ==
[2022-09-14 20:56] VITALS: BP 168/98; PULSE 94; RESP 18; TEMP 98.5; BMI 25.2
[2022-09-14] MEDS ORDERED: KETOROLAC TROMETHAMINE 30 MG/1 ML VIAL IM ONE (21:55)
[2022-09-14] MEDS ORDERED: KETOROLAC TROMETHAMINE 30 MG/1 ML VIAL ONE (21:59)
== END 2022-09-14 23:44 | disposition home or self-care (01) ==
LOC: JERFT 20:42 → JER 20:42
PROC: 3E0233Z Introduction of Anti-inflammatory into Muscle, Percutaneous Approach (ICD-10-PCS; principal; 2022-09-14)
DX: S00.83XA Contusion of other part of head, initial encounter (principal); H53.8 Other visual disturbances; X58.XXXA Exposure to other specified factors, initial encounter
CPT/HCPCS: 70486-TC; 99284-25

== ENCOUNTER 2022-09-21 16:34 | Emergency (ER) | payer OTHER ==
[2022-09-21 16:39] VITALS: PULSE 86; RESP 18; TEMP 98.3; BMI 25.2
[2022-09-21] MEDS ORDERED: MECLIZINE HCL 25 MG TABLET (FP) PO ONE ×2 (17:20→20:50)
[2022-09-21] MEDS ORDERED: LACTATED RINGERS SOLUTION 1000 ML INFUS.BAG IV ONE (17:20)
[2022-09-21] MEDS ORDERED: ACETAMINOPHEN 1000 MG/100 ML BAG IVPB ONE ×2 (17:20→18:03)
[2022-09-21] MEDS ORDERED: METOCLOPRAMIDE HCL INJECTION 10 MG/2 ML VIAL IVPUSH ONE (17:36)
[2022-09-21] MEDS ORDERED: ACETAMINOPHEN INJECTION 100 ML IVPB ONE (17:40)
[2022-09-21] MEDS ORDERED: METOCLOPRAMIDE HCL INJECTION 10 MG/2 ML VIAL ONE (17:40)
[2022-09-21] MEDS ORDERED: MECLIZINE HCL 25 MG TABLET (FP) ONE ×2 (17:40→22:01)
[2022-09-21 18:12] LABS: BASO % 0.8 % (0-2.0); EOS % 2.7 % (0-4.5); HEMATOCRIT 44.7 % (32.4-45.2); HEMOGLOBIN 15.1 GM/dL (10.7-15.3); LYMPH % 30.8 % (8-40); MCH 28.9 pg (25.7-33.7); MCHC 33.8 g/dl (32.0-36.0); MEAN CELL VOLUME 85.6 fl (80-96); MEAN PLT VOLUME 8.8 fl (7.5-11.1); MONO % 6.4 % (3.8-10.2); NEUT % 59.3 % (42.8-82.8); PLATELET COUNT 225 10^3/uL (134-434); RBC 5.22 M/mm3 (3.60-5.2); RDW 13.3 % (11.6-15.6); WHITE BLOOD COUNT 5.9 K/mm3 (4.0-10.0)
[2022-09-21 18:39] LABS: POTASSIUM 3.5 mmol/L (3.5-5.1)
[2022-09-21 18:41] LABS: ALBUMIN 3.9 g/dl (3.4-5.0); BLOOD UREA NITROGEN 10.8 mg/dL (7-18)
[2022-09-21 18:45] LABS: CREATININE 0.7 mg/dL (0.55-1.3); EPI CELLS 28 /uL (0-25.1); HYALINE CASTS 0 /uL (0-3.1); PH,URINE 5.5 (5.0-8.0); URINE APPEARANCE CLEAR; URINE BACTERIA 254 /uL (0-1359); URINE BILIRUBIN NEGATIVE (NEGATIVE); URINE COLOR YELLOW; URINE GLUCOSE (UA) NEGATIVE (NEGATIVE); URINE KETONE NEGATIVE (NEGATIVE); URINE LEUK ESTERASE 1+ (NEGATIVE); URINE NITRITE NEGATIVE (NEGATIVE); URINE PROTEIN NEGATIVE (NEGATIVE); URINE RBC 16 /uL (0-23.9); URINE UROBILINOGEN 0.2 mg/dL (0.2-1.0); URINE WBC 17 /uL (0-25.8)
[2022-09-21 18:46] LABS: BILIRUBIN,TOTAL 0.3 mg/dL (0.2-1); TOT PROT 7.2 g/dl (6.4-8.2)
[2022-09-21] MEDS ORDERED: CEFTRIAXONE 1 GM in DEXTROSE 5%-WATER - 50 ML IVPB ONE (19:02)
[2022-09-21] MEDS ORDERED: CEFTRIAXONE 1 GM/50 ML BAG ONE (22:01)
[2022-09-21 22:11] VITALS: BP 142/88
== END 2022-09-21 22:12 | disposition home or self-care (01) ==
LOC: JER 16:34
PROC: 3E03329 Introduction of Other Anti-infective into Peripheral Vein, Percutaneous Approach (ICD-10-PCS; principal; 2022-09-21)
PROC: 3E033GC Introduction of Other Therapeutic Substance into Peripheral Vein, Percutaneous Approach (ICD-10-PCS; 2022-09-21)
PROC: 3E033GC Introduction of Other Therapeutic Substance into Peripheral Vein, Percutaneous Approach (ICD-10-PCS; 2022-09-21)
PROC: 3E033NZ Introduction of Analgesics, Hypnotics, Sedatives into Peripheral Vein, Percutaneous Approach (ICD-10-PCS; 2022-09-21)
DX: R51.9 Headache, unspecified (principal); R42 Dizziness and giddiness; D32.9 Benign neoplasm of meninges, unspecified
CPT/HCPCS: 36415; 70450-TC; 70496-TC; 70498-TC; 80053; 81003; 85025; 87086; 99285-25

== ENCOUNTER 2024-03-02 21:16 | Emergency (ER) | payer OTHER ==
[2024-03-02 21:25] VITALS: BP 146/89; PULSE 86; RESP 18; TEMP 97.9; BMI 25.2
[2024-03-02] MEDS ORDERED: METHOCARBAMOL 500 MG TABLET ONE (22:07)
[2024-03-02] MEDS ORDERED: LIDOCAINE 4% PATCH TP ONE (22:07)
[2024-03-02] MEDS ORDERED: ACETAMINOPHEN 500 MG TABLET (FP) ONE (22:08)
[2024-03-02] MEDS ORDERED: KETOROLAC TROMETHAMINE 30 MG/1 ML VIAL ONE (22:08)
[2024-03-02] MEDS: ACETAMINOPHEN 500 MG TABLET (FP) PO ONE (22:14)
[2024-03-02] MEDS: KETOROLAC TROMETHAMINE 30 MG/1 ML VIAL IM ONE (22:15)
[2024-03-02] MEDS: LIDOCAINE 4% PATCH TP ONE (22:15)
[2024-03-02] MEDS: METHOCARBAMOL 500 MG TABLET PO ONE (22:17)
== END 2024-03-02 22:58 | disposition home or self-care (01) ==
LOC: JER 21:16 → JERFT 21:16
PROC: 3E0233Z Introduction of Anti-inflammatory into Muscle, Percutaneous Approach (ICD-10-PCS; principal; 2024-03-02)
DX: S29.012A Strain of muscle and tendon of back wall of thorax, initial encounter (principal); X50.1XXA Overexertion from prolonged static or awkward postures, initial encounter
CPT/HCPCS: 96372; 99284-25